=== PATIENT | male | born 1990 | race Hispanic/Latino ===

== ENCOUNTER 2025-02-16 16:06 | Emergency (ER) | payer SELFPAY ==
[2025-02-16] VITALS (10 sets, daily range): BP systolic 117–138; BP diastolic 76–103
[~2025-02-16] VITALS: Ht 162.6 cm; Wt 85.0 kg
[2025-02-16] MEDS ORDERED: KETOROLAC TROMETHAMINE 30 MG/ML SDV IM ONE (16:45)
[2025-02-16] MEDS ORDERED: NAPROXEN500 MG PO (18:33)
== END 2025-02-16 18:54 | disposition home or self-care (01) | DRG 563 ==
LOC: ED 16:06
DX: S83.91XA Sprain of unspecified site of right knee, initial encounter (principal); S80.11XA Contusion of right lower leg, initial encounter; W20.8XXA Other cause of strike by thrown, projected or falling object, initial encounter